=== PATIENT | male | born 1960 | race African-American/Black ===

== ENCOUNTER 2021-01-25 13:08 | Inpatient (IN) | payer OTHER ==
[2021-01-25 15:56] VITALS: BMI 28.0
[2021-01-25] MEDS ORDERED: diazePAM 5 MG TABLET PO PRN (16:08)
[2021-01-25] MEDS ORDERED: MENTHOL/PHENOL 1 EACH UD MM PRN (16:08)
[2021-01-25] MEDS ORDERED: MAGNESIUM CITRATE 300 ML BOTTLE PO PRN (16:08)
[2021-01-25] MEDS ORDERED: MAG HYDROX/AL HYDROX/SIMETH 30 ML UNIT-DOSE CUP PO PRN (16:08)
[2021-01-25] MEDS ORDERED: METHOCARBAMOL 500 MG TABLET PO PRN (16:08)
[2021-01-25] MEDS ORDERED: ACETAMINOPHEN 325 MG TABLET (FP) PO PRN ×2 (16:08)
[2021-01-25] MEDS ORDERED: ONDANSETRON *ODT* 4 MG TABLET SL PRN (16:08)
[2021-01-25] MEDS ORDERED: IBUPROFEN 400 MG TABLET (FP) PO PRN (16:08)
[2021-01-25] MEDS ORDERED: BISMUTH SUBSALICYLATE 524 MG/30 ML PO PRN (16:08)
[2021-01-25] MEDS: hydrOXYzine PAMOATE 25 MG CAPSULE (FP) PO SCH ×2 (19:23→22:41)
[2021-01-25] MEDS: diazePAM 5 MG TABLET PO SCH ×2 (19:23→22:41)
[2021-01-25] MEDS: CLOTRIMAZOLE 1% CREAM TP SCH (22:40)
[2021-01-25] MEDS: THIAMINE HCL 100 MG TABLET (FP) PO SCH (22:41)
[2021-01-25] MEDS: MELATONIN 5 MG TABLETS PO SCH (22:41)
[2021-01-26] MEDS: MAGNESIUM HYDROX 2400MG/30ML ORAL SUSPENSION 30 ML CUP PO PRN (05:29)
[2021-01-26] MEDS: hydrOXYzine PAMOATE 25 MG CAPSULE (FP) PO SCH ×5 (05:29→23:13)
[2021-01-26] MEDS: diazePAM 5 MG TABLET PO SCH ×4 (05:29→23:13)
[2021-01-26 10:05] LABS: HEMATOCRIT 42.4 % (35.4-49); HEMOGLOBIN 14.5 GM/dL (11.7-16.9); MCH 29.4 pg (25.7-33.7); MCHC 34.2 g/dl (32.0-35.9); MEAN PLT VOLUME 7.7 fl (7.5-11.1); PLATELET COUNT 212 10^3/uL (134-434); RBC 4.93 M/mm3 (4.00-5.60); RDW 14.8 % (11.9-15.9); WHITE BLOOD COUNT 4.8 K/mm3 (4.0-10.0)
[2021-01-26] MEDS: CLOTRIMAZOLE 1% CREAM TP SCH ×2 (10:09→23:13)
[2021-01-26 10:15] LABS: CALCIUM 8.8 mg/dL (8.5-10.1)
[2021-01-26 10:16] LABS: ALBUMIN 3.6 g/dl (3.4-5.0); BLOOD UREA NITROGEN 13.4 mg/dL (7-18)
[2021-01-26 10:18] LABS: BILIRUBIN,TOTAL 0.7 mg/dL (0.2-1); TOT PROT 7.4 g/dl (6.4-8.2)
[2021-01-26 10:19] LABS: CREATININE 1.4 mg/dL (0.55-1.3)
[2021-01-26] MEDS: MELATONIN 5 MG TABLETS PO SCH (23:13)
[2021-01-26] MEDS: THIAMINE HCL 100 MG TABLET (FP) PO SCH (23:13)
[2021-01-27] MEDS: hydrOXYzine PAMOATE 25 MG CAPSULE (FP) PO SCH ×5 (05:37→22:32)
[2021-01-27] MEDS: diazePAM 5 MG TABLET PO SCH ×3 (05:57→22:31)
[2021-01-27] MEDS: CLOTRIMAZOLE 1% CREAM TP SCH ×2 (10:08→22:31)
[2021-01-27] MEDS: PRENATAL VITAMINS W/ FOLIC ACID TABLET (FP) PO SCH (14:01)
[2021-01-27] MEDS: THIAMINE HCL 100 MG TABLET (FP) PO SCH (22:30)
[2021-01-27] MEDS: MELATONIN 5 MG TABLETS PO SCH (22:31)
[2021-01-28] MEDS: hydrOXYzine PAMOATE 25 MG CAPSULE (FP) PO SCH ×2 (07:37→10:49)
[2021-01-28] MEDS: diazePAM 5 MG TABLET PO SCH ×2 (07:37→17:29)
[2021-01-28 10:47] LABS: CALCIUM 9.1 mg/dL (8.5-10.1)
[2021-01-28 10:48] LABS: BLOOD UREA NITROGEN 12.4 mg/dL (7-18)
[2021-01-28] MEDS: PRENATAL VITAMINS W/ FOLIC ACID TABLET (FP) PO SCH (10:49)
[2021-01-28] MEDS: CLOTRIMAZOLE 1% CREAM TP SCH ×2 (10:49→22:15)
[2021-01-28 10:51] LABS: CREATININE 1.4 mg/dL (0.55-1.3)
[2021-01-28] MEDS: MELATONIN 5 MG TABLETS PO SCH (22:15)
[2021-01-28] MEDS: THIAMINE HCL 100 MG TABLET (FP) PO SCH (22:15)
[2021-01-29] MEDS: MAGNESIUM HYDROX 2400MG/30ML ORAL SUSPENSION 30 ML CUP PO PRN (05:49)
[2021-01-29] MEDS ORDERED: diazePAM 5 MG TABLET PO ONE (06:00)
[2021-01-29] MEDS: PRENATAL VITAMINS W/ FOLIC ACID TABLET (FP) PO SCH (10:05)
[2021-01-29] MEDS: CLOTRIMAZOLE 1% CREAM TP SCH (10:07)
[2021-01-29 12:55] VITALS: BP 129/82; PULSE 90; TEMP 97.7
== END 2021-01-29 12:40 | disposition other institution (70) | DRG 774 ==
LOC: YASAS 13:08 → Y6N 17:27
PROVIDERS: ADMIT Allergy & Immunology; ATTEND Allergy & Immunology
PROC: HZ2ZZZZ Detoxification Services for Substance Abuse Treatment (ICD-10-PCS; principal; 2021-01-25)
DX: F10.230 Alcohol dependence with withdrawal, uncomplicated (principal); F14.20 Cocaine dependence, uncomplicated; F10.282 Alcohol dependence with alcohol-induced sleep disorder; F19.282 Other psychoactive substance dependence with psychoactive substance-induced sleep disorder; R73.9 Hyperglycemia, unspecified; R79.89 Other specified abnormal findings of blood chemistry; Z56.0 Unemployment, unspecified; Z59.00 Homelessness unspecified
CPT/HCPCS: 36415; 80048; 80053; 85027; 86780; C9803; U0003; U0005

== ENCOUNTER 2021-01-29 12:49 | Inpatient (IN) | payer OTHER ==
[~2021-01-29 12:49] MED LIST: IBUPROFEN 400 MG TABLET (FP) PO PRN; LOPERAMIDE HCL 2 MG CAPSULE PO PRN; MAG HYDROX/AL HYDROX/SIMETH 30 ML UNIT-DOSE CUP PO PRN; MAGNESIUM CITRATE 300 ML BOTTLE PO PRN; MAGNESIUM HYDROX 2400MG/30ML ORAL SUSPENSION 30 ML CUP PO PRN; P-EPHED 60MG/TRIPROLIDI 2.5MG TABLET PO PRN; guaiFENesin 200 MG/10 ML 10 ML UNIT-DOSE CUPS PO PRN
[2021-01-29] MEDS: MELATONIN 5 MG TABLETS PO SCH (22:40)
[2021-01-29] MEDS: THIAMINE HCL 100 MG TABLET (FP) PO SCH (22:40)
[2021-01-30] MEDS: ACETAMINOPHEN 325 MG TABLET (FP) PO PRN ×2 (06:19→17:21)
[2021-01-30] MEDS: PRENATAL VITAMINS W/ FOLIC ACID TABLET (FP) PO SCH (09:03)
[2021-01-30 13:51] LABS: HIV INTERPRETATION NEGATIVE (NEGATIVE)
[2021-01-30] MEDS: THIAMINE HCL 100 MG TABLET (FP) PO SCH (21:58)
[2021-01-30] MEDS: MELATONIN 5 MG TABLETS PO SCH (21:59)
[2021-01-31] MEDS: PRENATAL VITAMINS W/ FOLIC ACID TABLET (FP) PO SCH (09:54)
[2021-01-31] MEDS: MELATONIN 5 MG TABLETS PO SCH (23:29)
[2021-01-31] MEDS: TOLNAFTATE 1% CREAM 15 GM TUBE TP SCH (23:29)
[2021-01-31] MEDS: THIAMINE HCL 100 MG TABLET (FP) PO SCH (23:29)
[2021-02-01] MEDS: ACETAMINOPHEN 325 MG TABLET (FP) PO PRN (06:40)
[2021-02-01] MEDS: PRENATAL VITAMINS W/ FOLIC ACID TABLET (FP) PO SCH (09:53)
[2021-02-01] MEDS: TOLNAFTATE 1% CREAM 15 GM TUBE TP SCH ×2 (09:53→23:19)
[2021-02-01] MEDS: MELATONIN 5 MG TABLETS PO SCH (23:19)
[2021-02-01] MEDS: THIAMINE HCL 100 MG TABLET (FP) PO SCH (23:19)
[2021-02-02] MEDS: ACETAMINOPHEN 325 MG TABLET (FP) PO PRN (06:30)
[2021-02-02] MEDS: PRENATAL VITAMINS W/ FOLIC ACID TABLET (FP) PO SCH (09:44)
[2021-02-02] MEDS: TOLNAFTATE 1% CREAM 15 GM TUBE TP SCH ×2 (09:44→21:48)
[2021-02-02] MEDS: MELATONIN 5 MG TABLETS PO SCH (21:48)
[2021-02-02] MEDS: THIAMINE HCL 100 MG TABLET (FP) PO SCH (21:48)
[2021-02-03] MEDS: PRENATAL VITAMINS W/ FOLIC ACID TABLET (FP) PO SCH (09:35)
[2021-02-03] MEDS: TOLNAFTATE 1% CREAM 15 GM TUBE TP SCH ×2 (09:35→21:36)
[2021-02-03] MEDS: ACETAMINOPHEN 325 MG TABLET (FP) PO PRN (18:17)
[2021-02-03] MEDS: THIAMINE HCL 100 MG TABLET (FP) PO SCH (21:36)
[2021-02-03] MEDS: MELATONIN 5 MG TABLETS PO SCH (21:36)
[2021-02-04] MEDS: TOLNAFTATE 1% CREAM 15 GM TUBE TP SCH ×2 (09:59→22:00)
[2021-02-04] MEDS: PRENATAL VITAMINS W/ FOLIC ACID TABLET (FP) PO SCH (09:59)
[2021-02-04] MEDS: THIAMINE HCL 100 MG TABLET (FP) PO SCH (22:00)
[2021-02-04] MEDS: MELATONIN 5 MG TABLETS PO SCH (22:00)
[2021-02-05] MEDS: PRENATAL VITAMINS W/ FOLIC ACID TABLET (FP) PO SCH (10:14)
[2021-02-05] MEDS: TOLNAFTATE 1% CREAM 15 GM TUBE TP SCH ×2 (10:15→23:32)
[2021-02-05] MEDS: MELATONIN 5 MG TABLETS PO SCH (23:32)
[2021-02-05] MEDS: THIAMINE HCL 100 MG TABLET (FP) PO SCH (23:32)
[2021-02-06] MEDS: PRENATAL VITAMINS W/ FOLIC ACID TABLET (FP) PO SCH (09:38)
[2021-02-06] MEDS: TOLNAFTATE 1% CREAM 15 GM TUBE TP SCH ×2 (09:39→22:23)
[2021-02-06] MEDS: THIAMINE HCL 100 MG TABLET (FP) PO SCH (22:23)
[2021-02-06] MEDS: MELATONIN 5 MG TABLETS PO SCH (22:23)
[2021-02-07] MEDS: TOLNAFTATE 1% CREAM 15 GM TUBE TP SCH ×2 (09:42→22:30)
[2021-02-07] MEDS: PRENATAL VITAMINS W/ FOLIC ACID TABLET (FP) PO SCH (09:42)
[2021-02-07] MEDS: THIAMINE HCL 100 MG TABLET (FP) PO SCH (22:30)
[2021-02-07] MEDS: MELATONIN 5 MG TABLETS PO SCH (22:30)
[2021-02-08] MEDS: PRENATAL VITAMINS W/ FOLIC ACID TABLET (FP) PO SCH (09:52)
[2021-02-08] MEDS: ACETAMINOPHEN 325 MG TABLET (FP) PO PRN (09:53)
[2021-02-08] MEDS: TOLNAFTATE 1% CREAM 15 GM TUBE TP SCH ×2 (09:53→21:56)
[2021-02-08] MEDS: MELATONIN 5 MG TABLETS PO SCH (21:56)
[2021-02-08] MEDS: THIAMINE HCL 100 MG TABLET (FP) PO SCH (21:56)
[2021-02-09] MEDS ORDERED: PT OWN MED DRAWER 7, Y5N ONE (09:02)
[2021-02-09] MEDS: TOLNAFTATE 1% CREAM 15 GM TUBE TP SCH ×2 (10:03→21:56)
[2021-02-09] MEDS: PRENATAL VITAMINS W/ FOLIC ACID TABLET (FP) PO SCH (10:03)
[2021-02-09] MEDS: MELATONIN 5 MG TABLETS PO SCH (21:56)
[2021-02-09] MEDS: THIAMINE HCL 100 MG TABLET (FP) PO SCH (21:57)
[2021-02-10] MEDS ORDERED: PT OWN MED DRAWER 7, Y5N ONE ×3 (08:22→21:52)
[2021-02-10] MEDS: PRENATAL VITAMINS W/ FOLIC ACID TABLET (FP) PO SCH (09:44)
[2021-02-10] MEDS: TOLNAFTATE 1% CREAM 15 GM TUBE TP SCH ×2 (09:44→23:13)
[2021-02-10] MEDS: MELATONIN 5 MG TABLETS PO SCH (23:13)
[2021-02-10] MEDS: THIAMINE HCL 100 MG TABLET (FP) PO SCH (23:13)
[2021-02-11] MEDS: TOLNAFTATE 1% CREAM 15 GM TUBE TP SCH ×2 (09:28→21:18)
[2021-02-11] MEDS: PRENATAL VITAMINS W/ FOLIC ACID TABLET (FP) PO SCH (09:28)
[2021-02-11] MEDS: MELATONIN 5 MG TABLETS PO SCH (21:16)
[2021-02-11] MEDS: THIAMINE HCL 100 MG TABLET (FP) PO SCH (21:16)
[2021-02-11] MEDS ORDERED: PT OWN MED DRAWER 7, Y5N ONE (21:17)
[2021-02-12] MEDS: TOLNAFTATE 1% CREAM 15 GM TUBE TP SCH ×2 (10:02→21:46)
[2021-02-12] MEDS: PRENATAL VITAMINS W/ FOLIC ACID TABLET (FP) PO SCH (10:02)
[2021-02-12] MEDS: MELATONIN 5 MG TABLETS PO SCH (21:46)
[2021-02-12] MEDS: THIAMINE HCL 100 MG TABLET (FP) PO SCH (21:46)
[2021-02-13] MEDS: TOLNAFTATE 1% CREAM 15 GM TUBE TP SCH ×2 (09:51→22:25)
[2021-02-13] MEDS: PRENATAL VITAMINS W/ FOLIC ACID TABLET (FP) PO SCH (09:51)
[2021-02-13] MEDS: MELATONIN 5 MG TABLETS PO SCH (22:25)
[2021-02-13] MEDS: THIAMINE HCL 100 MG TABLET (FP) PO SCH (22:25)
[2021-02-14] MEDS: PRENATAL VITAMINS W/ FOLIC ACID TABLET (FP) PO SCH (09:43)
[2021-02-14] MEDS: TOLNAFTATE 1% CREAM 15 GM TUBE TP SCH ×2 (09:44→23:22)
[2021-02-14] MEDS: MELATONIN 5 MG TABLETS PO SCH (23:22)
[2021-02-14] MEDS: THIAMINE HCL 100 MG TABLET (FP) PO SCH (23:22)
[2021-02-15] MEDS ORDERED: PT OWN MED DRAWER 7, Y5N ONE (09:00)
[2021-02-15] MEDS: PRENATAL VITAMINS W/ FOLIC ACID TABLET (FP) PO SCH (09:59)
[2021-02-15] MEDS: TOLNAFTATE 1% CREAM 15 GM TUBE TP SCH ×2 (10:00→21:46)
[2021-02-15] MEDS: THIAMINE HCL 100 MG TABLET (FP) PO SCH (21:46)
[2021-02-15] MEDS: MELATONIN 5 MG TABLETS PO SCH (21:46)
[2021-02-16 07:30] VITALS: BP 100/65; PULSE 84; TEMP 97.3
== END 2021-02-16 09:04 | disposition home or self-care (01) | DRG 772 ==
LOC: YASAS 12:49 → Y3E 12:50
PROVIDERS: ADMIT Allergy & Immunology; ATTEND Allergy & Immunology
PROC: HZ42ZZZ Group Counseling for Substance Abuse Treatment, Cognitive-Behavioral (ICD-10-PCS; principal; 2021-01-29)
DX: F10.20 Alcohol dependence, uncomplicated (principal); F14.20 Cocaine dependence, uncomplicated; Z59.00 Homelessness unspecified
CPT/HCPCS: 36415; 87389